=== PATIENT | female | born 1990 | race Caucasian/White ===

== ENCOUNTER 2023-10-28 16:10 | Emergency (ER) | payer OTHER, SELFPAY ==
[2023-10-28 16:25] VITALS: BP 116/84; PULSE 107; RESP 16; TEMP 37.1; O2SAT 100
--- NOTE | 2023-10-28 16:39 | ED.SKABFB ---
HPI - Skin/Abscess/Foreign Bdy General Chief complaint: Skin/Abscess/Foreign Body Stated complaint: Hives on Arms,Legs,Chest Source: patient Mode of arrival: ambulatory Limitations: no limitations History of Present Illness HPI narrative: 32-year-old female presented for complaint of itchy hives noted to arms and legs for about a week. Denies lip, tongue, or throat swelling, shortness of breath or wheezing. Denies changes to soap, detergent, lotion, or any other exposures. No one else in the house or any contacts with similar symptoms. Not taking anything for symptoms. Related Data Allergies Allergy/AdvReac Type Severity Reaction Status Date / Time Sulfa (Sulfonamide Allergy Severe Hives Verified 10/28/23 16:40 Antibiotics) Review of Systems Review of Systems: CONSTITUTIONAL: Denies body aches, fever, chills, or sweats. EYES: Denies visual changes, redness, or discharge. ENT: Denies rhinorrhea, congestion CARDIOVASCULAR: Denies chest pain, palpitations, or edema. RESPIRATORY: Denies cough or dyspnea. GASTROINTESTINAL: Denies abdominal pain, nausea, vomiting, or diarrhea. SKIN: reports rash MUSCULOSKELETAL: Denies back pain, joint pain, or myalgia. NEUROLOGIC: Denies headache, numbness, tingling, or weakness. [facility] Past Medical History Medical History (Updated 10/28/23 @ 16:53 by Sofia Arcos APRN) Asthma Comments At time of signature, I have reviewed and agree with nursing past medical, surgical, social and family history unless otherwise noted. Please see nursing chart for further information. There is no relevant family history pertinent to the presenting complaint Exam Narrative: GENERAL: Well-appearing EYES: PERRLA, conjunctivae clear, and EOMI. ENT: Mucous membranes moist. Oropharynx without edema, erythema or lesions. NECK: Supple. No lymphadenopathy CHEST: Clear to auscultation. No respiratory distress. HEART: Regular rate and rhythm. SKIN: Warm, dry. Scattered erythematous round lesions c/w urticaria noted to bilateral arms and legs, minimal to right breast. NEURO: Alert and oriented x3. Course Course Emergency Course: Patient is aware of diagnosis, understands and agrees to treatment plan. Anticipatory guidance given. Patient agrees to follow-up as directed and is aware of reasons to seek care at the emergency department. Portions of this record may have been created with voice recognition software Level of Care: Express Care Visit Vital Signs Vital signs: Vital Signs Temperature 98.8 F 10/28/23 16:25 Pulse Rate 107 H 10/28/23 16:25 Respiratory Rate 16 10/28/23 16:25 Blood Pressure 116/84 10/28/23 16:25 Pulse Oximetry 100 10/28/23 16:25 Oxygen Delivery Room Air 10/28/23 16:25 Temperature 98.8 F 10/28/23 16:25 Pulse Rate 107 H 10/28/23 16:25 Respiratory Rate 16 10/28/23 16:25 Blood Pressure 116/84 10/28/23 16:25 Pulse Oximetry 100 10/28/23 16:25 Oxygen Delivery Room Air 10/28/23 16:25 Reviewed MDM - Skin/Abscess/Foreign Bdy MDM Narrative Medical decision making narrative: Discussed physical exam findings. Advised supportive measures and signs/symptoms to go to the ER. Pt is appropriate for outpt treatment and f/u. Instructed patient to go to nearest ER immediately for any worsening symptoms including but not limited to: fever, spreading rash, pain, sore throat, headache, dizziness, chest pain, trouble breathing, or any symptoms concerning to the patient. Differential Diagnosis Differential diagnosis: Likely abscess of skin or subcutaneous tissue, urticaria, herpes zoster, cellulitis and contact dermatitis Discharge Plan Discharge Clinical Impression: Urticaria Patient Disposition: Home, Self-Care Condition: Stable Instructions: Antibiotic Form, Urticaria (ED) Additional Instructions: Take steroids and Pepcid as prescribed Benadryl every 8 hours as needed. Or Claritin as directed. Cool compresses to th
== END 2023-10-28 16:55 | disposition home or self-care (01) ==
PROVIDERS: Emergency Provider Nurse Practitioner Family
DX: L50.9 Urticaria, unspecified (principal); J45.909 Unspecified asthma, uncomplicated
CPT/HCPCS: 99203; G0463

== ENCOUNTER 2024-03-14 09:08 | Emergency (ER) | payer OTHER, SELFPAY ==
[2024-03-14 09:13] VITALS: BP 128/79; PULSE 99; RESP 16; TEMP 36.4; O2SAT 99
--- NOTE | 2024-03-14 09:30 | PC.NURSE ---
MD Orr notified of visual acuity exam results.
--- NOTE | 2024-03-14 09:35 | ED.EYEPROB ---
HPI - Eye Problem General Chief complaint: Eye Problems Stated complaint: blurry vision and eye pain Time Seen by Provider: 03/14/24 09:14 History of Present Illness HPI Narrative: Patient is a 33-year-old female who presents ER with sudden onset pain and blurriness in the left eye. She awoke from sleep having aching left eye and the vision is blurred. No flashes of light. No floaters. There are no dark spots. She has no change in her vision on the right side. While wearing her glasses her visual acuity in left eye was 20/100 in visual acuity in the right eye was 20/30. She denies any trauma to her eye. No foreign body sensation. No tearing. No discoloration. Recently started Lexapro. Related Data Allergies Allergy/AdvReac Type Severity Reaction Status Date / Time Sulfa (Sulfonamide Allergy Severe Hives Verified 03/14/24 10:08 Antibiotics) Review of Systems Constitutional: Constitutional: Reports no additional constitutional complaints Eyes: Eyes: Reports change in vision and Reports photophobia Neurologic: Reports system reviewed and no additional complaints, except as documented PMFSH Past Medical History Medical History (Updated 03/14/24 @ 10:15 by Allen Orr MD) Asthma Exam Narrative: GENERAL: Well-appearing, well-nourished, and in no acute distress. HEAD: Normocephalic, atraumatic. EYES: Left pupil is not reactive to light does not seem to accommodate. Right pupil reactive to light and accommodate sluggishly. EOMI. Right eye pressure 17 mmHg. Left eye pressure 78 mm Hg. Rt eye 20/30, Lt 20/100, Bi 20/30. ENT: Mucous membranes moist. CHEST: Clear to auscultation. No respiratory distress. HEART: Regular rate and rhythm. Normal peripheral pulses. EXTREMITIES: Normal range of motion. No edema. NEURO: Alert and oriented x3. PSYCH: Normal mood and affect. Course Course Emergency Course: Discussed case with [facility]. Recommends giving patient 1000 mg of Diamox orally before transfer to the [facility] ER. Patient accepted to the ER by Dr. Mccray. Patient educated to stay NPO and to go directly to the emergency room for further evaluation. She has received her Diamox. Vital Signs Vital signs: Vital Signs Temperature 97.5 F L 03/14/24 09:13 Pulse Rate 99 03/14/24 09:13 Respiratory Rate 16 03/14/24 09:13 Blood Pressure 128/79 03/14/24 09:13 Pulse Oximetry 99 03/14/24 09:13 Oxygen Delivery Room Air 03/14/24 09:13 Temperature 97.5 F L 03/14/24 09:13 Pulse Rate 99 03/14/24 09:13 Respiratory Rate 16 03/14/24 09:13 Blood Pressure 128/79 03/14/24 09:13 Pulse Oximetry 99 03/14/24 09:13 Oxygen Delivery Room Air 03/14/24 09:13 Discharge Plan Discharge Clinical Impression: Increased intraocular pressure Patient Disposition: Acute Care Hospital Condition: Stable Additional Instructions: Go directly to the [facility] Emergency Room. Prescriptions: No Action famotidine [Pepcid] 40 mg tablet 40 mg PO DAILY Qty: 10 0RF methylprednisolone [Medrol (Dm)] 4 mg tablets,dose pack See Rx Instructions .ROUTE .COMPLEX Qty: 21 0RF Rx Instructions: orally per package directions Follow-up/Referrals: PHYSICIAN NOT ON STAFF,NONSTAFF [Primary Care Provider] -
[2024-03-14] MEDS: acetaZOLAMIDE TAB 250 MG TABLET 1000 MG PO (10:14)
--- NOTE | 2024-03-14 10:17 | PC.NURSE ---
Patient understands the risk of private car tranport and declines EMS at this time. patient alert x4 and going to [facility] by private car.
== END 2024-03-14 10:19 | disposition short-term general hospital (02) ==
PROVIDERS: Emergency Provider Emergency Medicine
DX: H40.052 Ocular hypertension, left eye (principal); J45.909 Unspecified asthma, uncomplicated
CPT/HCPCS: 99283; A9270